=== PATIENT | male | born 1955 | race Caucasian/White ===

== ENCOUNTER 2016-11-04 12:10 | Inpatient (IN) ==
--- NOTE | 2016-11-04 12:29 | Emergency Department Note ---
Disposition Clinical Impression: New onset type 2 diabetes mellitus, Dehydration Acute kidney failure Qualifiers: Acute renal failure type: unspecified Qualified Code(s): N17.9 - Acute kidney failure, unspecified Disposition: Admitted As Inpatient Forms: ED Satisfaction Letter General Adult HPI - General Chief complaint: ED Dizziness Stated complaint: HIGH BS Time Seen by Provider: 11/04/16 12:22 Source: patient, family Limitations: no limitations Nursing Notes Reviewed: Yes Vital Signs Reviewed: Yes - History of Present Illness HPI Narrative: Patient is a 61-year-old male who states for the past several weeks he has had unquenchable thirst he has been tired sleeping more and also urinating many times about the day. He has become increasingly weak he checked his blood sugar today borrowing a glucometer and his blood sugar read elevated Pain Scale: 0 Improves with: nothing Worsens with: nothing Associated symptoms: Reports: malaise - Related Data Allergies Allergy/AdvReac Type Severity Reaction Status Date / Time No Known Allergies Allergy Verified 11/04/16 12:18 All systems ED: reviewed and negative except as stated. Constitutional: Reports: weakness. Denies: fever, chills Neurological: Reports: headache Past Medical History - Past Medical History Source: patient, old records reviewed, nursing notes reviewed Medical history: Reports: COPD, hyperlipidemia, hypertension - Social History Smoking Status: Never smoker Alcohol use: Reports: none Drug use: Reports: none Physical Exam - General Limitations: no limitations General appearance: in no apparent distress - Head Head exam: atraumatic, normocephalic, normal inspection - Eye Eye exam: Present: normal appearance, PERRL, EOMI - Expanded Eye Exam Pupils: Left: reactive - ENT ENT exam: normal exam, normal oropharynx, mucous membranes moist - Expanded ENT Exam External ear exam: Present: normal external inspection Mouth exam: Present: normal external inspection Teeth exam: Present: normal inspection Throat exam: Present: normal inspection - Neck Neck exam: Present: normal inspection, full ROM, trachea midline - Chest Chest inspection: Present: normal inspection, symmetric chest wall rise - Respiratory Respiratory exam: Present: normal lung sounds bilaterally - Cardiovascular Cardiovascular exam: Present: regular rate, normal rhythm, normal heart sounds - Abdominal Exam Abdominal exam: Present: soft, Non-Tender. Absent: tenderness, distention, guarding, rebound, rigidity - Extremities Exam Extremities exam: Present: normal inspection, full ROM. Absent: tenderness, pedal edema - Expanded Upper Extremity Exam Shoulder exam: Present: normal inspection, full ROM Arm exam: Present: normal inspection, full ROM Elbow exam: Present: normal inspection, full ROM Forearm/Wrist exam: Present: normal inspection, full ROM Hand exam: Present: normal inspection, full ROM Vascular exam: Normal: capillary refill, radial pulse - Expanded Lower Extremity Exam Hip/Pelvis exam: Present: normal inspection, full ROM Upper leg exam: Present: normal inspection, full ROM Knee exam: Present: normal inspection, full ROM Lower leg exam: Present: normal inspection, full ROM Ankle exam: Present: normal inspection, full ROM Foot/toe exam: Present: normal inspection, full ROM Neurovascular/Tendon exam: Absent: motor deficit, sensory deficit, tendon deficit - Back Exam Back exam: Present: normal inspection, full ROM. Absent: tenderness - Neurological Exam Neurological exam: Present: alert, oriented X3 - Expanded Neurological Exam Patient oriented to: Present: person, place, time Coma Scale Eye Opening: Spontaneous Coma Scale Motor Response: Obeys Commands Coma Scale Verbal Response: Oriented Coma Scale Total: 15 - Psychiatric Psychiatric exam: Present: normal affect, normal mood - Skin Skin exam: Present: warm, dry, intact, normal color Course Vital Signs Temperature 97.8 F 11/04/16 12:15 Pulse Rate 78 11/04/16 12:15 Respiratory Rate 22 11/04/16 12:15 Blood Pressure 101/66 11/04/16 12:15 O2 Sat by Pulse Oximetry 97 11/04/16 12:15 Temperature 97.8 F 11/04/16 12:15 Pulse Rate 74 11/04/16 13:59 Respiratory Rate 20 11/04/16 13:59 Blood Pressure 109/66 11/04/16 13:59 O2 Sat by Pulse Oximetry 94 11/04/16 13:59 Oxygen Delivery Oxygen Delivery Room Air Medical Decision Making - Lab Data Result diagrams: 11/04/16 12:48 11/04/16 12:48 Lab Results 11/04/16 11/04/16 11/04/16 Range/Units 12:48 12:48 12:48 WBC 12.0 H (4.3-11.1) K/mcL RBC 5.06 (4.19-5.50) M/mcL Hgb 14.3 (12.9-16.9) g/dL Hct 41.1 (37.5-50.1) % MCV 81.2 L (83.0-100.0) fL MCH 28.3 (28.0-33.3) pg MCHC 34.8 (31.6-35.5) g/dL RDW 13.5 (11.5-14.5) % Plt Count 242 (140-400) K/mcL MPV 10.9 (9.4-12.4) fL Immature Gran % 2.6 (0-4) % Seg Neutrophils % 64.5 % Lymphocytes % 18.7 % Monocytes % 8.0 % Eosinophils % 5.6 % Basophils % 0.6 % Neutrophils # 7.8 (1.6-8.9) K/mcL Lymphocytes # 2.2 (0.6-4.6) K/mcL Monocytes # 1.0 (0.0-1.3) K/mcL Eosinophils # 0.7 H (0.0-0.6) K/mcL Basophils # 0.1 (0.0-0.2) K/mcL VBG pH (7.32-7.42) pH Units VBG pCO2 (41-51) mmHg VBG pO2 (25-40) mmHg VBG HCO3 (21-27) mEq/L Sodium 123 L (136-145) mEq/L Potassium 4.2 (3.5-4.5) mEq/L Chloride 88 L (98-109) mEq/L Carbon Dioxide 21 (19-29) mEq/L BUN 47 H (8-26) mg/dL Creatinine 2.54 H (0.72-1.25) mg/dL Est GFR ( Amer) 31 L (> 60) Est GFR (Non-Af Amer) 26 L (> 60) BUN/Creatinine Ratio 19 (6-26) Glucose 709 H* (70-99) mg/dL Est Mean Plasma Glucose > 355 mg/dl Hemoglobin A1c >= 14.1 H ( - 5.6) % Calculated Osmolality 302 H (280-300) Calcium 8.9 (8.6-10.8) mg/dL Phosphorus 3.5 (2.3-4.7) mg/dL Magnesium 2.3 (1.6-2.6) mg/dL Total Bilirubin 1.1 (0.2-1.2) mg/dL AST 17 (5-34) Units/L ALT 26 (0-55) Units/L Alkaline Phosphatase 120 (38-126) Units/L Serum Total Protein 6.7 (6.0-8.3) g/dL Albumin 3.5 (3.5-5.0) g/dL Globulin 3.2 (2.4-3.5) g/dL Albumin/Globulin Ratio 1.1 (1.1-2.2) Beta-Hydroxybutyric Acd > 2.00 H (0.02-0.27) mmol/L 11/04/16 Range/Units 12:48 WBC (4.3-11.1) K/mcL RBC (4.19-5.50) M/mcL Hgb (12.9-16.9) g/dL Hct (37.5-50.1) % MCV (83.0-100.0) fL MCH (28.0-33.3) pg MCHC (31.6-35.5) g/dL RDW (11.5-14.5) % Plt Count (140-400) K/mcL MPV (9.4-12.4) fL Immature Gran % (0-4) % Seg Neutrophils % % Lymphocytes % % Monocytes % % Eosinophils % % Basophils % % Neutrophils # (1.6-8.9) K/mcL Lymphocytes # (0.6-4.6) K/mcL Monocytes # (0.0-1.3) K/mcL Eosinophils # (0.0-0.6) K/mcL Basophils # (0.0-0.2) K/mcL VBG pH 7.42 (7.32-7.42) pH Units VBG pCO2 32 L (41-51) mmHg VBG pO2 87 H (25-40) mmHg VBG HCO3 20.8 L (21-27) mEq/L Sodium (136-145) mEq/L Potassium (3.5-4.5) mEq/L Chloride (98-109) mEq/L Carbon Dioxide (19-29) mEq/L BUN (8-26) mg/dL Creatinine (0.72-1.25) mg/dL Est GFR ( Amer) (> 60) Est GFR (Non-Af Amer) (> 60) BUN/Creatinine Ratio (6-26) Glucose (70-99) mg/dL Est Mean Plasma Glucose mg/dl Hemoglobin A1c ( - 5.6) % Calculated Osmolality (280-300) Calcium (8.6-10.8) mg/dL Phosphorus (2.3-4.7) mg/dL Magnesium (1.6-2.6) mg/dL Total Bilirubin (0.2-1.2) mg/dL AST (5-34) Units/L ALT (0-55) Units/L Alkaline Phosphatase (38-126) Units/L Serum Total Protein (6.0-8.3) g/dL Albumin (3.5-5.0) g/dL Globulin (2.4-3.5) g/dL Albumin/Globulin Ratio (1.1-2.2) Beta-Hydroxybutyric Acd (0.02-0.27) mmol/L Critical Care Time Critical Care Time: Yes Total Critical Care Time: 40 Attestation: Critical care performed: Time is exclusive of separately billable procedures. Time includes: direct patient care, patient reassessment, coordination of patient care, interpretation of data (laboratory data, radiology data, and respiratory data), review of patient's medical records, medical consultation and documentation of patient care. Procedures included in critical care time: Procedures excluded from critical care time:
[2016-11-04] MEDS: 0.9 % Sodium Chloride 1,000 ML IVC SCH ×5 (12:51→18:10)
[2016-11-04 12:55] LABS: Basophils # 0.1 K/mcL (0.0-0.2); Basophils % 0.6 %; Eosinophils # 0.7 K/mcL (0.0-0.6); Eosinophils % 5.6 %; Hematocrit 41.1 % (37.5-50.1); Hemoglobin 14.3 g/dL (12.9-16.9); Immature Granulocytes % 2.6 % (0-4); Lymphocytes # 2.2 K/mcL (0.6-4.6); Lymphocytes % 18.7 %; Mean Corpuscular HGB Conc 34.8 g/dL (31.6-35.5); Mean Corpuscular Hemoglobin 28.3 pg (28.0-33.3); Mean Corpuscular Volume 81.2 fL (83.0-100.0); Mean Platelet Volume 10.9 fL (9.4-12.4); Neutrophils # 7.8 K/mcL (1.6-8.9); Platelet Count 242 K/mcL (140-400); Red Blood Count 5.06 M/mcL (4.19-5.50); Red Cell Distribution Width 13.5 % (11.5-14.5); Segmented Neutrophils % 64.5 %; VBG HCO3 20.8 mEq/L (21-27); VBG PH 7.42 pH Units (7.32-7.42)
[2016-11-04 13:04] LABS: Estimated Average Glucose > 355 mg/dl; Hemoglobin A1C >= 14.1 %
[2016-11-04 13:08] LABS: Alanine Aminotransferase 26 Units/L (0-55); Albumin 3.5 g/dL (3.5-5.0); Albumin/Globulin Ratio 1.1 (1.1-2.2); Alkaline Phosphatase 120 Units/L (38-126); Aspartate Amino Transferase 17 Units/L (5-34); BUN/Creatinine Ratio 19 (6-26); Bilirubin,Total 1.1 mg/dL (0.2-1.2); Blood Urea Nitrogen 47 mg/dL (8-26); Calcium 8.9 mg/dL (8.6-10.8); Carbon Dioxide 21 mEq/L (19-29); Chloride 88 mEq/L (98-109); Globulin 3.2 g/dL (2.4-3.5); Magnesium 2.3 mg/dL (1.6-2.6); Osmolality,Calculated 302 (280-300); Phosphorous 3.5 mg/dL (2.3-4.7); Potassium 4.2 mEq/L (3.5-4.5); Sodium 123 mEq/L (136-145); Total Protein 6.7 g/dL (6.0-8.3); eGFR For African Americans 31 (> 60); eGFR For Non-African Americans 26 (> 60)
[2016-11-04 13:12] LABS: Glucose 709 mg/dL (70-99)
[2016-11-04] MEDS ORDERED: Insulin Human Regular 10 UNIT in 0.9 % Sodium Chloride 10 ML IV ONE (13:12)
[2016-11-04 13:13] LABS: Beta-Hydroxybutyric Acid > 2.00 mmol/L (0.02-0.27)
[2016-11-04] MEDS ORDERED: Insulin LISPRO 300 UNITS/3 ML VIAL SQ STA (13:13)
[2016-11-04] MEDS ORDERED: Ondansetron 4 MG/2 ML VIAL IV ONE (14:43)
[2016-11-04] MEDS ORDERED: *HR* HYDROmorphone (PF) 1 MG/ML SYRINGE IV ONE (14:43)
[2016-11-04] MEDS ORDERED: Ondansetron 4 MG/2 ML VIAL IVP PRN (16:39)
[2016-11-04] MEDS ORDERED: Naloxone 0.4 MG/ML INJ IVP PRN (16:39)
[2016-11-04] MEDS ORDERED: Albuterol 2.5 MG/3 ML NEBULIZER IH PRN (16:41)
[2016-11-04] MEDS ORDERED: *HR* Dextrose 50 % in Water (Syg) 50 ML SYRINGE IVP PRN (16:45)
[2016-11-04] MEDS ORDERED: *HR* OxyCODONE/APAP 5/325 TABLET PO PRN (16:56)
[2016-11-04] MEDS: 0.9 % Sodium Chloride 500 ML IVC ONE ×2 (17:12→17:15)
[2016-11-04] MEDS: Insulin Human Regular 100 UNIT in 0.9 % Sodium Chloride 100 ML IVC SCH (17:24)
--- NOTE | 2016-11-04 17:25 | Event Note ---
Date of Encounter: 11/05/16 Time of Encounter: 16:45 Patient is a 61y/o male with PMH of hypertension, COPD, chronic back pain, morbid obesity who was admitted for management of hyperglycemia. Upon arrival to the ER, patient was noted to have BG of 709 with AIC of 14.1. Patient reported of being ill for the last two months currently finishing treatment for PNA. He denies having any prior history of being a prediabetic but states he does have extensive family history of Diabetes. Upon arrival to the floor, patient was noted to have BG of 490 and BP of 86/63. He is in no acute distress and able to communicate well. Denied any headache, dizziness, lightheadedness, chest pain, SOB at this time. Reports of having history of chronic back pain. States he was recently started on Lasix by his PCP for unknown reason and he has had increase in urination and thirst for the last few weeks. Patient was independently seen and examined with his present at bedside. Case was discussed with the MANAGER ERP. Will admit patient for management of: 1. Hyperglycemia secondary to DM 2. New onset DM 3. CYNTHIA on CKD 4. Hypotension 5. Leukocytosis chronic comorbidities: -HTN -HLD -Chronic Back pain -Morbid Obesity -COPD -BPH Plan: 1. Will start insulin drip until BG<200. Accuchecks q1h. Once BG<200, start Levemir 36units (since patient is insulin naive, will start at 0.2units/kg) and start medium dose insulin sliding scale algorithm. Start ADA diet and accuchecks ACHS once BG<200. nurse informatics educator consultation requested. 2. Continue IV fluids 3. Will give one time bolus of NS 500cc and closely monitor BP 4. Hold all antihypertensive medications at this time 5. Appears to be acute on chronic kidney injury. Will obtain renal US. hold all nephrotoxic agents at this time (Lisinopril/HCTZ, Meloxicam, Lasix) 6. No signs of infectious etiology present at this time. Will obtain UA and CXR to rule out any infectious etiology 7. Continue bronchodilator support for chronic COPD. 8. Will add Percocet 5/325 PO q6h prn chronic pain 9. DVT ppx
--- NOTE | 2016-11-04 18:25 | Internal Med History&Physical ---
Date of Encounter: 11/04/16 Time of Encounter: 17:30 Assessment and Plan (1) Hyperglycemia Current visit: Yes Status: Acute Assess: Patient presents with hyperglycemia over past two days. No previous history of hyperglycemia or DM. Plan: Initiate insulin drip. Hypoglycemia protocol ordered. Blood glucose checks. Diabetic diet ordered following NPO status. (2) Dizziness Current visit: Yes Status: Acute Assess: Patient reports dizziness over the past two days, as well as generalized weakness and fatigue. Plan: IV fluids ordered. Falls precautions ordered. (3) Acute kidney failure Current visit: Yes Status: Acute Assess: Patient presents with polyuria and urinary frequency over the past two days. Patient reports being diagnosed with UTI several weeks ago by PCP and placed on antibiotics. Plan: Retroperitoneal ultrasound ordered. XR chest ordered. KUB ordered. Urinalysis ordered. Continue Tamsulosin. Qualifiers: Acute renal failure type: unspecified Qualified Code(s): N17.9 - Acute kidney failure, unspecified (4) Hypertension Current visit: Yes Status: Chronic Assess: Patient reports history of hypertension. Plan: Monitor blood pressure during admission. Qualifiers: Hypertension type: essential hypertension Qualified Code(s): I10 - Essential (primary) hypertension (5) COPD (chronic obstructive pulmonary disease) Current visit: Yes Status: Chronic Assess: Patient reports history of COPD. Plan: Albuterol ordered. Continue fluticasone. Qualifiers: COPD type: unspecified COPD Qualified Code(s): J44.9 - Chronic obstructive pulmonary disease, unspecified (6) DVT prophylaxis Current visit: Yes Status: Acute Assess: DVT prophylaxis initiated due to admission. Plan: Heparin ordered. Ambulation with assistance as tolerated. 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 Plan: Oxycodone ordered for back pain. Narcan protocol ordered for possible opioid reversal. Qualifiers: Back pain location: back pain in unspecified location Chronicity: chronic Back pain laterality: unspecified Qualified Code(s): M54.9 - Dorsalgia, unspecified; G89.29 - Other chronic pain Internal Medicine - H&P: HPI Chief complaint: Dizziness related to high blood sugar Admitted From: Emergency Dept Plans for Post Hospital Care: Home History of present illness: Mr. Stoddard is a 61 year old male who began feeling dizzy several days ago and his checked his blood glucose level at home which was >400. Patient also reports that he has been feeling extremely fatigued, very thirsty, and experiencing polyuria. He decided to come to the ED today based on these worsening symptoms. Reports headache. Denies nausea or vomiting. Past Med Surg Social Fam HX - Past Medical History Source: other (Patient was fatigued during examination, so his provided additional information. Patient reports he began feeling poorly on September 03, 2016 and was diagnosed with ear & sinus infection by PCP. Reports two weeks later he experienced stomach pain, nausea, vomiting, and diarrhea with suspected kidney stone (undocumented). Several weeks later, patient states he was diagnosed with UTI and pneumonia by PCP and has not felt better since.) Medical history: COPD, hyperlipidemia, hypertension, renal disease (GFR of 26) - Past Surgical History Surgical History: no surgical history - Social History Smoking Status: Never smoker Smokeless Tobacco Status: No Alcohol use: none Drug use: none Occupational status: retired Current living situation: Home, With Family Recent Out of Country Travel Within the Last 8 Weeks: No Exposure or Possible Exposure to Illness During Travel: No - Family History Father Race: Family Member Ethnicity: Non- Living Status: Still Living Hx Family Endocrine Disorder: Yes (DM) Brother Race: Family Member Ethnicity: Non- Living Status: Still Living Hx Family Endocrine Disorder: Yes (DM) - Additional Family History Additional family history: Brother, at the age of 59 from complications from DM. Internal Medicine - H&P: Meds Albuterol Neb [Proventil Neb] 2.5 mg IH Q4-6H PRN 11/04/16 [History] Baclofen [Lioresal] 10 mg PO TID PRN 11/04/16 [History] Fluticasone/Vilanterol [Breo Ellipta 200-25 Mcg INH] 1 each IH DAILY 11/04/16 [ History] Furosemide [Lasix] 40 mg PO BID 11/04/16 [History] Guanfacine HCl [Intuniv] 2 mg PO DAILY 11/04/16 [History] Lisinopril/Hydrochlorothiazide [Zestoretic 20-25 mg Tablet] 1 each PO DAILY 12/16 [History] Meloxicam [Mobic] 15 mg PO DAILY 11/04/16 [History] Potassium Chloride [K-Tab ER] 10 meq PO DAILY 11/04/16 [History] Sucralfate [Carafate] 1 gm PO QIDAC 11/04/16 [History] Tamsulosin [Flomax] 0.8 mg PO DAILY 11/04/16 [History] Tramadol HCl [Ultram] 50 - 100 mg PO QID PRN 11/04/16 [History] Umeclidinium [place] [Incruse Ellipta] 62.5 mcg IH DAILY 11/04/16 [History] Allergies No Known Allergies Allergy (Verified 11/04/16 12:18) All Systems PM: A 10-system review of systems was performed and is negative for pertinent findings except as documented above in the HPI. - Constitutional Constitutional: anorexia, fatigue, malaise, weakness, weight loss Additional comments: Patient reports loss of appetite over the past month. Patient also reports worsening fatigue, malaise, and weakness. Reports an unintended weight loss of 50 pounds over the last 6 weeks. - EENT Eyes: no change in vision, no discharge, no pain, no photophobia Ears: no ear discharge, no ear pain, no tinnitus Nose, mouth and throat: no dysphagia, no nasal discharge, no neck pain, no sore throat - Cardiovascular Cardiovascular ROS IM: no chest pain, no diaphoresis, no dyspnea, no lightheadedness, no palpitations, no syncope Additional comments: Patient reports dizziness over last two days. Denies syncopal episodes. - Respiratory Respiratory: snoring Additional comments: Patient reports use of CPAP at night due to sleep apnea. - Gastrointestinal Gastrointestinal: no abdominal pain, no diarrhea, no hematemesis, no hematochezia, no melena, no nausea, no vomiting - Genitourinary Genitourinary ROS male: urinary frequency Additional comments: Patient reports polyuria. States he is up every hour at night to urinate. 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 States he recently retired. - Integumentary Integumentary IM: other Additional comments: Skin discoloration present bilaterally on lower legs. - Neurological Neurological ROS: dizziness, headache(s), weakness Additional comments: Patient reports dizziness over last two days, headache, and weakness which has become progressively worse over the last few weeks. - Psychiatric Psychiatric: as per HPI Additional comments: Patient states that his PCP prescribed Venlafaxine for depression but he doesn' t take it because he feels he is not depressed, but rather fatigued. - Endocrine Endocrine IM: polyuria Additional comments: Patient reports polyuria during the day and urination every hour at night which keeps him awake. - Hematologic/Lymphatic Hematologic/Lymphatic: no easy bruising - Allergic/Immunologic Allergic/Immunologic: as per HPI - Constitutional Vitals: Temp Pulse Resp BP Pulse Ox 97.5 F L 78 17 113/72 92 11/04/16 16:48 11/04/16 16:48 11/04/16 16:48 11/04/16 18:09 11/04/16 16:48 General appearance: Present: mild distress, A&O X 3, morbidly obese, pleasant, answers questions appropriately Exam: Patient appeared to be mildly uncomfortable which was not improved with position changes. Patient appeared fatigued and allowed his to provide additional information for assessment and history. - Head Head exam: Present: atraumatic, normocephalic - Eye Eye exam: Present: PERRL, conjuntiva pink, sclera anicteric - ENT ENT exam: Present: normal exam - Neck Neck exam general surgery: Present: supple, trachea midline. Absent: lymphadenopathy - Respiratory Respiratory exam: Present: CTAB. Absent: accessory muscle use, rales, rhonchi, wheezes - Cardiovascular Cardiovascular exam: Present: RRR, +S1, +S2. Absent: diastolic murmur, gallop, rubs, systolic murmur - GI/Abdominal GI/Abdominal exam: Present: normal bowel sounds, soft, no peritoneal signs. Absent: distended, tenderness - Rectal Rectal exam: Present: deferred - Additional comments: exam deferred. - Extremities Exam Extremities exam: Present: normal inspection, pedal edema, warm Additional comments: +1 pedal edema bilaterally in lower legs and feet. - Back Exam Back exam: Present: normal inspection - Neurological Exam Neurological exam: Present: oriented X3, no focal deficits Additional comments: Patient appears extremely fatigued. - Psychiatric Psychiatric exam: Present: normal affect, normal mood - Skin Skin exam: Present: dry, warm Additional comments: Some skin discoloration bilaterally on lower legs. Internal Med - H&P Results - Labs CBC & Chem 7: 11/04/16 12:48 11/04/16 12:48
[2016-11-04 20:18] LABS: Calcium 8.6 mg/dL (8.6-10.8); Potassium 3.6 mEq/L (3.5-4.5)
[2016-11-04] MEDS: *HR* Heparin 5,000 UNIT/ML VIAL SQ SCH (21:01)
[2016-11-04] MEDS: Sucralfate 1 GM TABLET PO SCH (21:15)
[2016-11-04 22:58] LABS: Bilirubin,Urine Small (Negative); Blood,Urine Negative (Negative); Clarity,Urine Clear (Clear); Color,Urine Yellow (Yellow); Glucose,Urine (UA) >=1000 mg/dL (Normal); Ketones,Urine Negative (Negative); Leukocyte Esterase,Urine Small (Negative); Nitrite,Urine Negative (Negative); Protein,Urine Trace mg/dL (Neg-Trace); Specific Gravity,Urine 1.028 (1.010-1.025); Urobilinogen,Urine Normal (Normal)
[2016-11-04 23:02] LABS: Bacteria,Urine None Seen per hpf (None-Few); RBC,Urine 0-3 per hpf (0-3); Squamous Epithelial Cell,Urine Many per lpf (None-Few); WBC,Urine 15-30 per hpf (0-3)
[2016-11-04 23:09] LABS: Hyaline Casts,Urine Few per lpf (None-Few)
[2016-11-05 02:10] LABS: Calcium 8.6 mg/dL (8.6-10.8); Potassium 3.5 mEq/L (3.5-4.5)
[2016-11-05] MEDS ORDERED: Insulin DETEMIR 100 UNIT/ML X5UNITS SQ ONE (05:34)
[2016-11-05] MEDS: Insulin Human Regular 100 UNIT in 0.9 % Sodium Chloride 100 ML IVC SCH (05:50)
[2016-11-05 06:20] LABS: BUN/Creatinine Ratio 24 (6-26); Blood Urea Nitrogen 47 mg/dL (8-26); Calcium 8.6 mg/dL (8.6-10.8); Carbon Dioxide 19 mEq/L (19-29); Chloride 103 mEq/L (98-109); Chol/HDL Ratio 5.9 (0-4.9); Cholesterol 183 mg/dL (< 200); Glucose 113 mg/dL (70-99); HDL Cholesterol 31 mg/dL (40-59); Magnesium 2.4 mg/dL (1.6-2.6); Osmolality,Calculated 293 (280-300); Phosphorous 3.6 mg/dL (2.3-4.7); Potassium 4.3 mEq/L (3.5-4.5); Sodium 135 mEq/L (136-145); Triglycerides 507 mg/dL (< 150); eGFR For African Americans 42 (> 60); eGFR For Non-African Americans 35 (> 60)
[2016-11-05] MEDS: *HR* Heparin 5,000 UNIT/ML VIAL SQ SCH ×2 (06:37→17:45)
[2016-11-05] MEDS: Insulin LISPRO 300 UNITS/3 ML VIAL SQ SCH ×3 (07:53→17:44)
[2016-11-05] MEDS: Sucralfate 1 GM TABLET PO SCH ×4 (07:53→21:31)
[2016-11-05] MEDS: (Umeclidinium Bromide [Incruse Ellipta] 62.5 MCG) IH SCH (07:54)
[2016-11-05] MEDS: (Fluticasone/Vilanterol [Breo Ellipta 200-25 Mcg Inh] IH SCH (07:54)
[2016-11-05 08:39] LABS: Basophils # 0.1 K/mcL (0.0-0.2); Basophils % 0.6 %; Eosinophils # 0.8 K/mcL (0.0-0.6); Eosinophils % 7.8 %; Hematocrit 38.1 % (37.5-50.1); Hemoglobin 13.1 g/dL (12.9-16.9); Immature Granulocytes % 2.1 % (0-4); Lymphocytes # 2.7 K/mcL (0.6-4.6); Lymphocytes % 24.8 %; Mean Corpuscular HGB Conc 34.4 g/dL (31.6-35.5); Mean Corpuscular Volume 84.3 fL (83.0-100.0); Mean Platelet Volume 10.8 fL (9.4-12.4); Monocytes # 0.7 K/mcL (0.0-1.3); Monocytes % 6.8 %; Neutrophils # 6.2 K/mcL (1.6-8.9); Platelet Count 215 K/mcL (140-400); Red Blood Count 4.52 M/mcL (4.19-5.50); Red Cell Distribution Width 13.6 % (11.5-14.5); Segmented Neutrophils % 57.9 %
[2016-11-05] MEDS: 0.9 % Sodium Chloride 1,000 ML IVC SCH ×3 (12:51→23:23)
--- NOTE | 2016-11-05 13:43 | Internal Med Progress Note ---
Date of Encounter: 11/05/16 Time of Encounter: 13:41 - Assessment and plan (1) Dysphagia Current Visit: Yes Status: Acute Assessment and plan: Reports of having history of dysphagia to solid food for over a month with unintentional weight loss will consult GI for possible EGD follow up speech therapy eval will closely monitor Qualifiers: Dysphagia type: unspecified Qualified Code(s): R13.10 - Dysphagia, unspecified (2) [id number] kidney injury Current Visit: Yes Status: Acute Assessment and plan: Renal function improving Renal US negative for any pathology will continue to hold nephrotoxic agents continue IV fluids (3) New onset type 2 diabetes mellitus Current Visit: Yes Status: Acute Assessment and plan: -BG better controlled Received Levemir 30units this morning, will adjust therapy as per 24 hour requirements will continue sliding scale insulin algorithm as needed continue to monitor FS and BG (4) Hypertension Current Visit: Yes Status: Chronic Assessment and plan: BP within acceptable range despite being off antihypertensive medications will continue to closely monitor Qualifiers: Hypertension type: essential hypertension Qualified Code(s): I10 - Essential (primary) hypertension (5) COPD (chronic obstructive pulmonary disease) Current Visit: Yes Status: Chronic Assessment and plan: not in acute exacerbation reports of using cpap at bedtime, will continue bronchodilators as needed Qualifiers: COPD type: unspecified COPD Qualified Code(s): J44.9 - Chronic obstructive pulmonary disease, unspecified (6) DVT prophylaxis Current Visit: Yes Status: Acute Assessment and plan: Heparin SQ (7) Back pain Current Visit: Yes Status: Chronic Assessment and plan: continue percocet prn Qualifiers: Back pain location: back pain in unspecified location Chronicity: chronic Back pain laterality: unspecified Qualified Code(s): M54.9 - Dorsalgia, unspecified; G89.29 - Other chronic pain - Subjective Interval history: Patient seen and examined with present at bedside. Reports of feeling better compared to the previous day. Reports of having dysphagia to solid foods for the last month with unintentional weight loss of 50lbs. Denies any having any prior EGD. At this time he is tolerating soft diet without any discomfort. - Constitutional Vitals: Temp Pulse Resp BP Pulse Ox 98.1 F 89 16 120/65 94 11/05/16 11:34 11/05/16 11:34 11/05/16 11:34 11/05/16 11:34 11/05/16 11:34 General appearance: Present: A&O X 3, morbidly obese, pleasant, no acute distress, answers questions appropriately - Head Head exam: Present: atraumatic, normocephalic - Eye Eye exam: Present: normal appearance, conjuntiva pink, sclera anicteric - Respiratory Respiratory exam: Present: decreased breath sounds (due to body habitus). Absent: respiratory distress, wheezes - Cardiovascular Cardiovascular exam: Present: RRR, +S1, +S2. Absent: diastolic murmur, gallop, rubs, systolic murmur - GI/Abdominal GI/Abdominal exam: Present: normal bowel sounds, soft, no peritoneal signs. Absent: distended, tenderness - Extremities Exam Extremities exam: Present: warm, radial pulses palpable and symetrical. Absent : calf tenderness, cyanotic, pedal edema - Neurological Exam Neurological exam: Present: alert, oriented X3 - Psychiatric Psychiatric exam: Present: normal affect, normal mood Internal Medicine: Result - Labs CBC & Chem 7: 11/05/16 07:36 11/05/16 04:57 Labs: Short CBC 11/05/16 Range/Units 07:36 WBC 10.7 (4.3-11.1) K/mcL Hgb 13.1 (12.9-16.9) g/dL Hct 38.1 (37.5-50.1) % Plt Count 215 (140-400) K/mcL Neutrophils # 6.2 (1.6-8.9) K/mcL BMP 11/04/16 11/05/16 11/05/16 19:39 00:30 04:57 Sodium 133 L D 133 L 135 L Potassium 3.6 3.5 4.3 Chloride 99 97 L 103 Carbon Dioxide 20 22 19 BUN 46 H 48 H 47 H Creatinine 2.23 H 2.20 H 1.96 H Glucose 198 H 213 H 113 H Calcium 8.6 8.6 8.6 Urine 11/04/16 Range/Units 22:45 Urine Color Yellow (Yellow) Urine Clarity Clear (Clear) Urine pH 5.0 (5.0-8.0) pH Units Ur Specific [place] 1.028 H (1.010-1.025) Urine Protein Trace (Neg-Trace) mg/dL Urine Glucose (UA) >=1000 H (Normal) mg/dL - Impressions Impressions Chest X-Ray 11/04/16 17:10 IMPRESSION: Slight ground-glass attenuation at the left costophrenic sulcus may represent atelectasis or perhaps trace pleural fluid. Early pneumonitis considered less likely. D/ / Yosi Hilton MD / Yosi Hilton MD Interpreting Provider: Yosi Hilton MD X-Ray 11/04/16 17:18 IMPRESSION: No evidence of nephrolithiasis. No other significant findings. D/ / Yosi Hilton MD / Yosi Hilton MD Interpreting Provider: Yosi Hilton MD Retroperitoneum Ultrasound 11/04/16 22:00 IMPRESSION: No evidence of hydronephrosis. No abnormality demonstrated. D/ / Vito Pinedo MD / Vito Pinedo MD Interpreting Provider: Vito Pinedo MD Consult Discharge Plan - Plan Referrals: Miac Hudson CNP [Primary Care Provider] -
[2016-11-05] MEDS ORDERED: Insulin LISPRO 300 UNITS/3 ML VIAL SQ SCH (21:00)
[2016-11-06 03:21] LABS: Basophils # 0.1 K/mcL (0.0-0.2); Basophils % 1.1 %; Eosinophils # 0.6 K/mcL (0.0-0.6); Eosinophils % 7.3 %; Hematocrit 38.8 % (37.5-50.1); Hemoglobin 13.1 g/dL (12.9-16.9); Immature Granulocytes % 3.3 % (0-4); Lymphocytes # 2.3 K/mcL (0.6-4.6); Lymphocytes % 26.6 %; Mean Corpuscular HGB Conc 33.8 g/dL (31.6-35.5); Mean Corpuscular Hemoglobin 28.4 pg (28.0-33.3); Mean Platelet Volume 10.7 fL (9.4-12.4); Monocytes # 0.7 K/mcL (0.0-1.3); Monocytes % 8.3 %; Neutrophils # 4.5 K/mcL (1.6-8.9); Platelet Count 200 K/mcL (140-400); Red Blood Count 4.62 M/mcL (4.19-5.50); Red Cell Distribution Width 13.6 % (11.5-14.5); Segmented Neutrophils % 53.4 %
[2016-11-06 03:34] LABS: Calcium 8.5 mg/dL (8.6-10.8); Magnesium 2.3 mg/dL (1.6-2.6); Phosphorous 2.7 mg/dL (2.3-4.7)
[2016-11-06 03:37] LABS: Potassium 4.4 mEq/L (3.5-4.5)
[2016-11-06] MEDS: *HR* Heparin 5,000 UNIT/ML VIAL SQ SCH ×2 (06:28→18:25)
[2016-11-06] MEDS ORDERED: Insulin DETEMIR 100 UNIT/ML X5UNITS SQ SCH ×2 (07:00→21:00)
[2016-11-06] MEDS: (Fluticasone/Vilanterol [Breo Ellipta 200-25 Mcg Inh] IH SCH (07:48)
[2016-11-06] MEDS: (Umeclidinium Bromide [Incruse Ellipta] 62.5 MCG) IH SCH (07:48)
[2016-11-06] MEDS: Sucralfate 1 GM TABLET PO SCH ×4 (07:52→19:47)
[2016-11-06] MEDS: Insulin LISPRO 300 UNITS/3 ML VIAL SQ SCH ×6 (07:52→20:56)
[2016-11-06] MEDS: Insulin DETEMIR 100 UNIT/ML X5UNITS SQ SCH (10:37)
[2016-11-06] MEDS ORDERED: Insulin DETEMIR 100 UNIT/ML X5UNITS SQ ONE (10:38)
[2016-11-06] MEDS ORDERED: Dextrose Gel 15 GM PO PRN ×2 (10:41)
[2016-11-06] MEDS ORDERED: *HR* Dextrose 50 % in Water (Syg) 50 ML SYRINGE IVP PRN (10:41)
[2016-11-06] MEDS ORDERED: D5% in Water 1,000 ML IVC PRN (10:41)
[2016-11-06] MEDS: Sennosides/Docusate Sodium TABLET PO SCH ×2 (11:17→19:47)
--- NOTE | 2016-11-06 12:27 | Gastroenterology Consult Note ---
<Grayson Kong - Last Filed: 11/06/16 12:25> Date of Encounter: 11/06/16 Time of Encounter: 10:30 - Assessment and plan (1) Dysphagia Current Visit: Yes Status: Acute Assessment and plan: Unable to complete EGD today as pt was not NPO. Plan to complete EGD as outpatient with possible dilation in GI/Pulm. Qualifiers: Dysphagia type: unspecified Qualified Code(s): R13.10 - Dysphagia, unspecified (2) COPD (chronic obstructive pulmonary disease) Current Visit: Yes Status: Chronic Qualifiers: COPD type: unspecified COPD Qualified Code(s): J44.9 - Chronic obstructive pulmonary disease, unspecified (3) Unintentional weight loss Current Visit: Yes Status: Acute Assessment and plan: Pt reports an unintentional weight loss of 50 lbs over the past month. Consider EGD/colonoscopy as outpatient. - Time Spent With Patient Total time spent is greater than 50% in coordination of care (as documented) at patient's floor/unit and/or counseling patient: GI History of Present Illness - Data of Consult Patient: new to practice Consult date: 11/06/16 Requesting Physician: Kerri Stern MD - Consult Narrative Reason for consult: dysphagia History of present illness: Mr. Stoddard is a 61 year old male with PMHx of COPD, HLD, HTN, who presented with feeling dizzy for several days, On presentation to the ED BG was 709 wiht A1C of 14.1. He reports dysphagia with solid foods for the past month, and reports an unintentional weight loss of 50 lbs. No previous EGD. He states he had no difficulty swallowing his breakfast this morning. He denies any history of colonoscopy. Procedures: None NSAIDs: Mobic Anticoagulation: None Past Med Surg Social Fam HX - Past Medical History Medical history: COPD, hyperlipidemia, hypertension, renal disease (GFR of 26) - Past Surgical History Surgical History: no surgical history - Social History Smoking Status: Never smoker Smokeless Tobacco Status: No Alcohol use: none Drug use: none - Family History Father Race: Family Member Ethnicity: Non- Living Status: Still Living Hx Family Endocrine Disorder: Yes (DM) Brother Race: Family Member Ethnicity: Non- Living Status: Still Living Hx Family Endocrine Disorder: Yes (DM) - Gastrointestinal Gastrointestinal: Present: as per HPI - Constitutional Constitutional: as per HPI - EENT Eyes: as per HPI Ears: Present: as per HPI Nose, mouth and throat: Present: as per HPI - Cardiovascular Cardiovascular ROS: Present: as per HPI - Respiratory Respiratory IM: Present: as per HPI - Genitourinary Genitourinary: Absent: change in color, Urinary frequency - Neurological ROS Neurological GI: Present: as per HPI - Hematologic/Lymphatic Hematologic/Lymphatic pediatric: Present: as per HPI - Musculoskeletal Musculoskeletal ROS GI: Present: as per HPI - Integumentary Integumentary GI: Present: as per HPI - Psychiatric ROS Psychiatric GI: Present: as per HPI - Endocrine Endocrine IM: Present: as per HPI - Constitutional Vitals: Temp Pulse Resp BP Pulse Ox 98 F 86 18 154/69 96 11/06/16 10:37 11/06/16 10:37 11/06/16 10:37 11/06/16 10:37 11/06/16 10:37 General appearance: Present: cooperative, A&O X 3, no acute distress, answers questions appropriately - Head Head exam: Present: atraumatic, normocephalic - Eye Eye exam: Present: normal appearance, sclera anicteric - ENT ENT exam: Present: mucous membranes moist - Neck Neck exam general surgery: Present: normal inspection, trachea midline - Respiratory Respiratory exam: Present: decreased breath sounds, CTAB. Absent: rales, rhonchi - Cardiovascular Cardiovascular exam: Present: RRR, +S1, +S2 - GI/Abdominal GI/Abdominal exam: Present: soft, no peritoneal signs. Absent: distended, firm , guarding, tenderness Additional comments: obese - Rectal Rectal exam: Present: deferred - Extremities Exam Extremities exam: Present: warm - Neurological Exam Neurological exam: Present: no focal deficits - Psychiatric Psychiatric exam: Present: normal affect, normal mood - Skin Skin exam: Present: dry, intact, normal color, warm Results - Labs CBC & Chem 7: 11/06/16 02:41 11/06/16 02:41 Labs: Last Result Calcium 8.5 mg/dL (8.6-10.8) L 11/06/16 02:41 Triglycerides 507 mg/dL (< 150) H 11/05/16 04:57 Entire Visit Hgb 13.1 g/dL (12.9-16.9) 11/06/16 02:41 Hct 38.8 % (37.5-50.1) 11/06/16 02:41 Total Bilirubin 1.1 mg/dL (0.2-1.2) 11/04/16 12:48 AST 17 Units/L (5-34) 11/04/16 12:48 ALT 26 Units/L (0-55) 11/04/16 12:48 Consult Discharge Plan - Plan Referrals: Mica Hudson ELECTRIC RANGE PREPARER [Primary Care Provider] - 11/09/16 10:00 am <Won Fowler - Last Filed: 11/06/16 14:44> Date of Encounter: 11/06/16 - Time Spent With Patient Total time spent is greater than 50% in coordination of care (as documented) at patient's floor/unit and/or counseling patient: GI History of Present Illness - Data of Consult Requesting Physician: Kerri Stern MD - Consult Narrative History of present illness: Mr. Stoddard is a 61 year old male - Constitutional Vitals: Temp Pulse Resp BP Pulse Ox 97.6 F 97 16 179/73 96 11/06/16 14:42 11/06/16 14:42 11/06/16 14:42 11/06/16 14:42 11/06/16 14:42 Results - Labs CBC & Chem 7: 11/06/16 02:41 11/06/16 02:41 Labs: Last Result Calcium 8.5 mg/dL (8.6-10.8) L 11/06/16 02:41 Triglycerides 507 mg/dL (< 150) H 11/05/16 04:57 Entire Visit Hgb 13.1 g/dL (12.9-16.9) 11/06/16 02:41 Hct 38.8 % (37.5-50.1) 11/06/16 02:41 Total Bilirubin 1.1 mg/dL (0.2-1.2) 11/04/16 12:48 AST 17 Units/L (5-34) 11/04/16 12:48 ALT 26 Units/L (0-55) 11/04/16 12:48 - Attending Attestation I examined this patient and my medical decision-making was reviewed with the CHILD CARE ASSOCIATE TEACHER/PA/Advanced Practice Nurse/Resident Physician. I agree with the documented findings, disposition and treatment plan as described except to the extent set forth below.
[2016-11-06] MEDS: 0.9 % Sodium Chloride 1,000 ML IVC SCH ×2 (12:31→20:56)
--- NOTE | 2016-11-06 13:11 | Internal Med Progress Note ---
Date of Encounter: 11/06/16 Time of Encounter: 12:30 - Assessment and plan (1) New onset type 2 diabetes mellitus Current Visit: Yes Status: Acute Assessment and plan: -Hyperglycemia persists -Increased to Levemir 48units qD and added Lispro 6units TIDAC based on the 24hour insulin requirements -will continue to closely monitor BG and FS -continue SS insulin algorithm as needed (2) Dysphagia Current Visit: Yes Status: Acute Assessment and plan: Reports of having history of dysphagia to solid food for over a month with unintentional weight loss GI and speech consultation noted EGD as outpatient Qualifiers: Dysphagia type: unspecified Qualified Code(s): R13.10 - Dysphagia, unspecified (3) [id number] kidney injury Current Visit: Yes Status: Acute Assessment and plan: Renal function improving Renal US negative for any pathology will continue to hold nephrotoxic agents continue IV fluids (4) Hypertension Current Visit: Yes Status: Chronic Assessment and plan: BP within acceptable range despite being off antihypertensive medications will continue to closely monitor Qualifiers: Hypertension type: essential hypertension Qualified Code(s): I10 - Essential (primary) hypertension (5) COPD (chronic obstructive pulmonary disease) Current Visit: Yes Status: Chronic Assessment and plan: not in acute exacerbation reports of using cpap at bedtime, will continue bronchodilators as needed Qualifiers: COPD type: unspecified COPD Qualified Code(s): J44.9 - Chronic obstructive pulmonary disease, unspecified (6) DVT prophylaxis Current Visit: Yes Status: Acute Assessment and plan: Heparin SQ (7) Back pain Current Visit: Yes Status: Chronic Assessment and plan: continue percocet prn Qualifiers: Back pain location: back pain in unspecified location Chronicity: chronic Back pain laterality: unspecified Qualified Code(s): M54.9 - Dorsalgia, unspecified; G89.29 - Other chronic pain - Subjective Interval history: Patient seen and examined at bedside. REsting in bed and reports of feeling better. Noted to remain hyperglycemic. Will adjust insulin therapy. Discharge pending better control of BG. - Constitutional Vitals: Temp Pulse Resp BP Pulse Ox 98 F 86 18 154/69 96 11/06/16 10:37 11/06/16 10:37 11/06/16 10:37 11/06/16 10:37 11/06/16 10:37 General appearance: Present: A&O X 3, morbidly obese, pleasant, no acute distress, answers questions appropriately - Head Head exam: Present: atraumatic, normocephalic - Eye Eye exam: Present: PERRL, conjuntiva pink, sclera anicteric - Respiratory Respiratory exam: Present: CTAB. Absent: accessory muscle use, rales, rhonchi, wheezes - Cardiovascular Cardiovascular exam: Present: RRR, +S1, +S2. Absent: diastolic murmur, gallop, rubs, systolic murmur - GI/Abdominal GI/Abdominal exam: Present: normal bowel sounds, soft, no peritoneal signs. Absent: distended, tenderness - Extremities Exam Extremities exam: Present: warm, radial pulses palpable and symetrical. Absent : calf tenderness, cyanotic, pedal edema - Neurological Exam Neurological exam: Present: alert, oriented X3 - Psychiatric Psychiatric exam: Present: normal affect, normal mood Internal Medicine: Result - Labs CBC & Chem 7: 11/06/16 02:41 11/06/16 02:41 Labs: Short CBC 11/06/16 Range/Units 02:41 WBC 8.5 (4.3-11.1) K/mcL Hgb 13.1 (12.9-16.9) g/dL Hct 38.8 (37.5-50.1) % Plt Count 200 (140-400) K/mcL Neutrophils # 4.5 (1.6-8.9) K/mcL BMP 11/06/16 02:41 Sodium 135 L Potassium 4.4 Chloride 102 Carbon Dioxide 19 BUN 35 H D Creatinine 1.58 H Glucose 302 H Calcium 8.5 L Consult Discharge Plan - Plan Referrals: Mica Hudson CNP [Primary Care Provider] - 11/09/16 10:00 am
[2016-11-06] MEDS: Budesonide/Formoterol 160/4.5 MDI IH SCH ×2 (14:36→20:13)
[2016-11-06] MEDS: Nystatin POWDER 30 GM BOTTLE TP SCH (19:48)
[2016-11-07 04:36] LABS: BUN/Creatinine Ratio 17 (6-26); Calcium 8.4 mg/dL (8.6-10.8); Carbon Dioxide 17 mEq/L (19-29); Chloride 108 mEq/L (98-109); Glucose 178 mg/dL (70-99); Magnesium 1.7 mg/dL (1.6-2.6); Osmolality,Calculated 290 (280-300); Phosphorous 2.5 mg/dL (2.3-4.7); Potassium 3.6 mEq/L (3.5-4.5); Sodium 137 mEq/L (136-145); eGFR For African Americans > 60 (> 60); eGFR For Non-African Americans > 60 (> 60)
[2016-11-07 04:37] LABS: Blood Urea Nitrogen 18 mg/dL (8-26)
[2016-11-07 06:12] LABS: Basophils # 0.1 K/mcL (0.0-0.2); Basophils % 0.8 %; Eosinophils # 0.6 K/mcL (0.0-0.6); Hematocrit 36.4 % (37.5-50.1); Hemoglobin 12.4 g/dL (12.9-16.9); Immature Granulocytes % 1.8 % (0-4); Lymphocytes # 2.3 K/mcL (0.6-4.6); Lymphocytes % 30.6 %; Mean Corpuscular HGB Conc 34.1 g/dL (31.6-35.5); Mean Corpuscular Volume 85.2 fL (83.0-100.0); Mean Platelet Volume 11.1 fL (9.4-12.4); Monocytes # 0.8 K/mcL (0.0-1.3); Monocytes % 10.6 %; Neutrophils # 3.7 K/mcL (1.6-8.9); Platelet Count 177 K/mcL (140-400); Red Blood Count 4.27 M/mcL (4.19-5.50); Red Cell Distribution Width 13.8 % (11.5-14.5); Segmented Neutrophils % 48.2 %
[2016-11-07] MEDS: *HR* Heparin 5,000 UNIT/ML VIAL SQ SCH ×2 (06:36→16:53)
[2016-11-07] MEDS: 0.9 % Sodium Chloride 1,000 ML IVC SCH (06:39)
[2016-11-07] MEDS: Budesonide/Formoterol 160/4.5 MDI IH SCH ×2 (07:36→20:21)
[2016-11-07] MEDS: Sucralfate 1 GM TABLET PO SCH ×4 (07:51→22:12)
[2016-11-07] MEDS: Sennosides/Docusate Sodium TABLET PO SCH ×2 (07:51→22:12)
[2016-11-07] MEDS: Nystatin POWDER 30 GM BOTTLE TP SCH ×2 (07:52→22:13)
[2016-11-07] MEDS: Insulin LISPRO 300 UNITS/3 ML VIAL SQ SCH ×7 (07:52→22:13)
[2016-11-07] MEDS: (Fluticasone/Vilanterol [Breo Ellipta 200-25 Mcg Inh] IH SCH (07:53)
[2016-11-07] MEDS: (Umeclidinium Bromide [Incruse Ellipta] 62.5 MCG) IH SCH (07:53)
[2016-11-07] MEDS ORDERED: 0.9 % Sodium Chloride 1,000 ML IVC SCH (08:19)
[2016-11-07] MEDS: Insulin DETEMIR 100 UNIT/ML X5UNITS SQ SCH (08:22)
[2016-11-07] MEDS: Furosemide 40 MG TABLET PO SCH ×2 (10:51→16:53)
--- NOTE | 2016-11-07 13:52 | Internal Med Progress Note ---
Date of Encounter: 11/07/16 Time of Encounter: 13:48 - Assessment and plan (1) New onset type 2 diabetes mellitus Current Visit: Yes Status: Acute Assessment and plan: -Hyperglycemia persists -Given the consistent hyperglycemia, Levemir 20units qHS was added to his regimen yesterday, along with increasing Lispro to 10units TIDAC. Despite this increase patient has required over 50units of additional insulin coverage. -Will continue Levemir 48units qd and increased to Levemir 40units qHS -increased to high dose insulin algorithm -increased Lispro to 15units TIDAC -continue SS insulin algorithm as needed -monitor FS and BG closely (2) Dysphagia Current Visit: Yes Status: Acute Assessment and plan: Reports of having history of dysphagia to solid food for over a month with unintentional weight loss GI and speech consultation noted EGD as outpatient Qualifiers: Dysphagia type: unspecified Qualified Code(s): R13.10 - Dysphagia, unspecified (3) Whqsb-ln-[id number] kidney injury Current Visit: Yes Status: Acute Assessment and plan: Resolved will restart home antihypertensives and closely monitor renal function d/c IV fluids (4) Hypertension Current Visit: Yes Status: Chronic Assessment and plan: Noted to be hypertensive this morning but asymptomatic restarted home medications (Lisinopril/HCTZ, Lasix) Added Hydralazine 10mg IV q6h PRN SBP>160 will continue to closely monitor BP Qualifiers: Hypertension type: essential hypertension Qualified Code(s): I10 - Essential (primary) hypertension (5) COPD (chronic obstructive pulmonary disease) Current Visit: Yes Status: Chronic Assessment and plan: not in acute exacerbation reports of using cpap at bedtime, will continue bronchodilators as needed Qualifiers: COPD type: unspecified COPD Qualified Code(s): J44.9 - Chronic obstructive pulmonary disease, unspecified (6) DVT prophylaxis Current Visit: Yes Status: Acute Assessment and plan: Heparin SQ (7) Back pain Current Visit: Yes Status: Chronic Assessment and plan: continue percocet prn Qualifiers: Back pain location: back pain in unspecified location Chronicity: chronic Back pain laterality: unspecified Qualified Code(s): M54.9 - Dorsalgia, unspecified; G89.29 - Other chronic pain - Subjective Interval history: Patient seen and examined at bedside. Resting in bed and reports of feeling better. Noted to remain hyperglycemic and hypertensive this morning. Denies any discomfort at this time. Will adjust insulin therapy. Discharge pending better control of BG. - Constitutional Vitals: Temp Pulse Resp BP Pulse Ox 98.6 F 81 16 170/69 97 11/07/16 11:06 11/07/16 11:06 11/07/16 11:06 11/07/16 11:06 11/07/16 11:06 General appearance: Present: A&O X 3, morbidly obese, pleasant, no acute distress, answers questions appropriately - Head Head exam: Present: atraumatic, normocephalic - Eye Eye exam: Present: normal appearance, conjuntiva pink, sclera anicteric - Respiratory Respiratory exam: Present: CTAB. Absent: accessory muscle use, rales, rhonchi, wheezes - Cardiovascular Cardiovascular exam: Present: RRR, +S1, +S2. Absent: diastolic murmur, gallop, rubs, systolic murmur - GI/Abdominal GI/Abdominal exam: Present: normal bowel sounds, soft, no peritoneal signs. Absent: distended, tenderness Additional comments: ventral hernia - Extremities Exam Extremities exam: Present: warm, radial pulses palpable and symetrical. Absent : calf tenderness, cyanotic, pedal edema - Neurological Exam Neurological exam: Present: alert, oriented X3 - Psychiatric Psychiatric exam: Present: normal affect, normal mood Internal Medicine: Result - Labs CBC & Chem 7: 11/07/16 05:16 11/07/16 03:13 Labs: Short CBC 11/07/16 Range/Units 05:16 WBC 7.6 (4.3-11.1) K/mcL Hgb 12.4 L (12.9-16.9) g/dL Hct 36.4 L (37.5-50.1) % Plt Count 177 (140-400) K/mcL Neutrophils # 3.7 (1.6-8.9) K/mcL BMP 11/07/16 03:13 Sodium 137 Potassium 3.6 Chloride 108 Carbon Dioxide 17 L BUN 18 D Creatinine 1.08 Glucose 178 H Calcium 8.4 L Consult Discharge Plan - Plan Referrals: Mica Hudson CNP [Primary Care Provider] - 11/09/16 10:00 am
[2016-11-07] MEDS ORDERED: Insulin DETEMIR 100 UNIT/ML X5UNITS SQ SCH (21:00)
--- NOTE | 2016-11-07 21:50 | Event Note ---
Date of Encounter: 11/07/16 Time of Encounter: 21:45 on-call Hospitalist note: RN paged me to review the patient. Patient apparently noted rash on his arms bilaterally and the left forearm, no rash on trunk. Rash is itchy and burning. On my evaluation he had confluent, erythematous rash on the arms, left fore arm and upper back. I suspect allergic reaction. On review of his medications, hydralazine seems me on the new medication, which he received this afternoon. Possible allergic reaction to hydralazine. D/C hydralazine and list it as allegy. Start Benadryl PRN. Monitor.
[2016-11-08 06:14] LABS: Basophils # 0.1 K/mcL (0.0-0.2); Basophils % 0.6 %; Eosinophils # 0.5 K/mcL (0.0-0.6); Eosinophils % 6.9 %; Hematocrit 36.6 % (37.5-50.1); Hemoglobin 12.3 g/dL (12.9-16.9); Lymphocytes # 2.5 K/mcL (0.6-4.6); Mean Corpuscular HGB Conc 33.6 g/dL (31.6-35.5); Mean Corpuscular Hemoglobin 28.4 pg (28.0-33.3); Mean Corpuscular Volume 84.5 fL (83.0-100.0); Mean Platelet Volume 10.3 fL (9.4-12.4); Monocytes # 0.8 K/mcL (0.0-1.3); Monocytes % 10.5 %; Neutrophils # 3.8 K/mcL (1.6-8.9); Platelet Count 179 K/mcL (140-400); Red Blood Count 4.33 M/mcL (4.19-5.50); Red Cell Distribution Width 13.8 % (11.5-14.5)
[2016-11-08] MEDS: *HR* Heparin 5,000 UNIT/ML VIAL SQ SCH (06:18)
[2016-11-08 06:30] LABS: BUN/Creatinine Ratio 11 (6-26); Blood Urea Nitrogen 12 mg/dL (8-26); Calcium 8.7 mg/dL (8.6-10.8); Carbon Dioxide 21 mEq/L (19-29); Chloride 107 mEq/L (98-109); Glucose 130 mg/dL (70-99); Magnesium 1.5 mg/dL (1.6-2.6); Osmolality,Calculated 288 (280-300); Phosphorous 3.4 mg/dL (2.3-4.7); Potassium 3.5 mEq/L (3.5-4.5); Sodium 138 mEq/L (136-145); eGFR For African Americans > 60 (> 60); eGFR For Non-African Americans > 60 (> 60)
[2016-11-08] MEDS: Furosemide 40 MG TABLET PO SCH (07:33)
[2016-11-08] MEDS: Sucralfate 1 GM TABLET PO SCH ×2 (07:33→11:49)
[2016-11-08] MEDS: (Fluticasone/Vilanterol [Breo Ellipta 200-25 Mcg Inh] IH SCH (07:34)
[2016-11-08] MEDS: Insulin LISPRO 300 UNITS/3 ML VIAL SQ SCH ×4 (07:34→11:49)
[2016-11-08] MEDS: Sennosides/Docusate Sodium TABLET PO SCH (07:34)
[2016-11-08] MEDS: (Umeclidinium Bromide [Incruse Ellipta] 62.5 MCG) IH SCH (07:34)
[2016-11-08] MEDS: Nystatin POWDER 30 GM BOTTLE TP SCH (07:35)
[2016-11-08] MEDS: Budesonide/Formoterol 160/4.5 MDI IH SCH (07:42)
[2016-11-08] MEDS ORDERED: Magnesium Sulfate 1 GM in D5% in Water 100 ML IVPB ONE (08:04)
[2016-11-08] MEDS: Insulin DETEMIR 100 UNIT/ML X5UNITS SQ SCH (09:09)
--- NOTE | 2016-11-08 13:42 | Discharge Summary ---
Date of Encounter: 11/08/16 Time of Encounter: 13:39 - Discharge Diagnosis (1) New onset type 2 diabetes mellitus Priority: Primary Status: Acute (2) Dysphagia Priority: Secondary Status: Acute Qualifiers: Dysphagia type: unspecified Qualified Code(s): R13.10 - Dysphagia, unspecified (3) Lyyfq-fl-dopdfjd kidney injury Priority: Secondary Status: Resolved (4) Hypertension Priority: Secondary Status: Chronic Qualifiers: Hypertension type: essential hypertension Qualified Code(s): I10 - Essential (primary) hypertension (5) COPD (chronic obstructive pulmonary disease) Priority: Secondary Status: Chronic Qualifiers: COPD type: unspecified COPD Qualified Code(s): J44.9 - Chronic obstructive pulmonary disease, unspecified (6) DVT prophylaxis Priority: Secondary Status: Acute (7) Back pain Priority: Secondary Status: Chronic Qualifiers: Back pain location: back pain in unspecified location Chronicity: chronic Back pain laterality: unspecified Qualified Code(s): M54.9 - Dorsalgia, unspecified; G89.29 - Other chronic pain - Discharge Medications Home Medications: Albuterol Neb [Proventil Neb] 2.5 mg IH Q4-6H PRN 11/04/16 [History] Baclofen [Lioresal] 10 mg PO TID PRN 11/04/16 [History] Fluticasone/Vilanterol [Breo Ellipta 200-25 Mcg INH] 1 each IH DAILY 11/04/16 [ History] Furosemide [Lasix] 40 mg PO BID 11/04/16 [History] Guanfacine HCl [Intuniv] 2 mg PO DAILY 11/04/16 [History] Lisinopril/Hydrochlorothiazide [Zestoretic 20-25 mg Tablet] 1 each PO DAILY 12/16 [History] Meloxicam [Mobic] 15 mg PO DAILY 11/04/16 [History] Potassium Chloride [K-Tab ER] 10 meq PO DAILY 11/04/16 [History] Sucralfate [Carafate] 1 gm PO QIDAC 11/04/16 [History] Tamsulosin [Flomax] 0.8 mg PO DAILY 11/04/16 [History] Tramadol HCl [Ultram] 50 - 100 mg PO QID PRN 11/04/16 [History] Umeclidinium [place] [Incruse Ellipta] 62.5 mcg IH DAILY 11/04/16 [History] Insulin DETEMIR [Levemir] 40 unit SQ HS #0 [id number] 11/08/16 [Rx] Insulin DETEMIR [Levemir] 48 unit SQ DAILY #0 [id number] 11/08/16 [Rx] Insulin LISPRO [HumaLOG] 15 units SQ TIDAC #0 vial 11/08/16 [Rx] Allergies/Adverse Reactions: Allergies No Known Allergies Allergy (Verified 11/04/16 12:18) Date of admission: 11/05/16 14:21 Primary care physician: Mica Hudson, Discharging clinician: Kerri Stern Anticipated date of discharge: 11/08/16 - Patient Status Disposition: Home, Self-Care Condition: Good Functional capacity at discharge: independent ambulation Overall status at discharge: patient is back to baseline - Discharge Instructions Follow Up With: Mica Hudson, JORDAN [Primary Care Provider] - 11/09/16 10:00 am Additional Instructions: Please follow up with your primary care physician on Wednesday (11/09/16). Please follow up with Mainframe Developer within one to two weeks after your discharge from the hospital. Please closely monitor your blood glucose at home (fasting, before meals, two hours after meals, and before bedtime). Please keep a log of these numbers and take this log with you to your Primary care physician's appointment. Your insulin therapy regimen will be adjusted as per these numbers. Please seek medical help if you have persistently elevated BG greater than 300. Please seek medical help if you have BG less than 100. Your insulin and supplies have been called to the [facility] pharmacy (Levemir 50units in am and Levemir 40units at bedtime, Novolog 15units before meals) Please resume all your other medications as prescribed by your primary care physician. - Diet and Activity Activity: resume usual activities as tolerated Diet: diabetic diet Hospital course: Mr. Stoddard is a 61 year old male ith PMH of hypertension, COPD, chronic back pain , morbid obesity who was admitted for management of hyperglycemia. Upon arrival to the ER, patient was noted to have BG of 709 with AIC of 14.1. Patient was started on insulin drip and switched to Levemir once his BG was better controlled. He was also noted to have CYNTHIA and hypotension due to which his home medication of lisinopril, lasix were place on hold and he was started on IV fluids. His CYNTHIA resolved and BP became elevated at which time his home antihypertensives were resumed. He also reported of having dysphagia with weight loss for which GI eval was requested. NO acute GI intervention was recommended and an outpatient follow up was suggested. Patient was seen by a personal development educator and was provided with the knowledge to administer insulin therapy. At this time patient is hemodynamically stable with BG better controlled, he will be discharged to home with insulin therapy. All his prescriptions have been called in to his pharmacy. Patient demonstrates understanding of his diagnosis and agrees with the discharge plan. - Time Spent with Patient Total time spent providing and/or coordinating discharge services: Greater than 30 minutes - Constitutional Vitals: Temp Pulse Resp BP Pulse Ox 97.8 F 90 16 166/73 98 11/08/16 10:54 11/08/16 10:54 11/08/16 10:54 11/08/16 10:54 11/08/16 10:54 General appearance: Present: A&O X 3, morbidly obese, pleasant, no acute distress, answers questions appropriately - Head Head exam: Present: atraumatic, normocephalic - Respiratory Respiratory exam: Present: CTAB. Absent: accessory muscle use, rales, rhonchi, wheezes - Cardiovascular Cardiovascular exam: Present: RRR, +S1, +S2. Absent: diastolic murmur, gallop, rubs, systolic murmur - GI/Abdominal GI/Abdominal exam: Present: normal bowel sounds, soft, no peritoneal signs. Absent: distended, tenderness Additional comments: ventral hernia - Extremities Exam Extremities exam: Present: warm, radial pulses palpable and symetrical. Absent : calf tenderness, cyanotic, pedal edema - Neurological Exam Neurological exam: Present: alert, oriented X3 - Psychiatric Psychiatric exam: Present: normal affect, normal mood
--- NOTE | 2016-11-08 14:50 | Discharge Summary ---
Date of Encounter: 11/08/16 Time of Encounter: 14:50 - Discharge Diagnosis (1) New onset type 2 diabetes mellitus Priority: Primary Status: Acute (2) Dysphagia Priority: Secondary Status: Acute Qualifiers: Dysphagia type: unspecified Qualified Code(s): R13.10 - Dysphagia, unspecified (3) Oylrv-rh-gbbfxnx kidney injury Priority: Secondary Status: Resolved (4) Hypertension Priority: Secondary Status: Chronic Qualifiers: Hypertension type: essential hypertension Qualified Code(s): I10 - Essential (primary) hypertension (5) COPD (chronic obstructive pulmonary disease) Priority: Secondary Status: Chronic Qualifiers: COPD type: unspecified COPD Qualified Code(s): J44.9 - Chronic obstructive pulmonary disease, unspecified (6) DVT prophylaxis Priority: Secondary Status: Acute (7) Back pain Priority: Secondary Status: Chronic Qualifiers: Back pain location: back pain in unspecified location Chronicity: chronic Back pain laterality: unspecified Qualified Code(s): M54.9 - Dorsalgia, unspecified; G89.29 - Other chronic pain - Discharge Medications Home Medications: Albuterol Neb [Proventil Neb] 2.5 mg IH Q4-6H PRN 11/04/16 [History] Baclofen [Lioresal] 10 mg PO TID PRN 11/04/16 [History] Fluticasone/Vilanterol [Breo Ellipta 200-25 Mcg INH] 1 each IH DAILY 11/04/16 [ History] Furosemide [Lasix] 40 mg PO BID 11/04/16 [History] Guanfacine HCl [Intuniv] 2 mg PO DAILY 11/04/16 [History] Lisinopril/Hydrochlorothiazide [Zestoretic 20-25 mg Tablet] 1 each PO DAILY 12/16 [History] Meloxicam [Mobic] 15 mg PO DAILY 11/04/16 [History] Potassium Chloride [K-Tab ER] 10 meq PO DAILY 11/04/16 [History] Sucralfate [Carafate] 1 gm PO QIDAC 11/04/16 [History] Tamsulosin [Flomax] 0.8 mg PO DAILY 11/04/16 [History] Tramadol HCl [Ultram] 50 - 100 mg PO QID PRN 11/04/16 [History] Umeclidinium [place] [Incruse Ellipta] 62.5 mcg IH DAILY 11/04/16 [History] Insulin DETEMIR [Levemir] 40 unit SQ HS #0 [id number] 11/08/16 [Rx] Insulin DETEMIR [Levemir] 48 unit SQ DAILY #0 [id number] 11/08/16 [Rx] Insulin LISPRO [HumaLOG] 15 units SQ TIDAC #0 vial 11/08/16 [Rx] Allergies/Adverse Reactions: Allergies No Known Allergies Allergy (Verified 11/04/16 12:18) Date of admission: 11/05/16 14:21 Primary care physician: Mica Hudson, - Patient Status Disposition: Home, Self-Care Condition: Good - Discharge Instructions Instructions: How to Check Your Blood Sugar (DC), How to Check Your Blood Sugar (GEN), Diabetes Mellitus Type 2 in Adults (DC) Follow Up With: Mica Hudson, TRANSPORTATION INSPECTOR [Primary Care Provider] - 11/09/16 10:00 am Additional Instructions: Please follow up with your primary care physician on Wednesday (11/09/16). Please follow up with Director Epidemiology within one to two weeks after your discharge from the hospital. Please closely monitor your blood glucose at home (fasting, before meals, two hours after meals, and before bedtime). Please keep a log of these numbers and take this log with you to your Primary care physician's appointment. Your insulin therapy regimen will be adjusted as per these numbers. Please seek medical help if you have persistently elevated BG greater than 300. Please seek medical help if you have BG less than 100. Your insulin and supplies have been called to the [facility] pharmacy (Levemir 50units in am and Levemir 40units at bedtime, Novolog 15units before meals) Please resume all your other medications as prescribed by your primary care physician. Hospital course: Mr. Stoddard is a 61 year old male - Time Spent with Patient Total time spent providing and/or coordinating discharge services: - Constitutional Vitals: Temp Pulse Resp BP Pulse Ox 97.8 F 90 16 166/73 98 11/08/16 10:54 11/08/16 10:54 11/08/16 10:54 11/08/16 10:54 11/08/16 10:54 General appearance: Present: A&O X 3, morbidly obese, pleasant, no acute distress, answers questions appropriately
[2016-11-10 10:30] VITALS: BP 166/73
== END 2016-11-08 15:10 | disposition home or self-care (01) | DRG 420 ==
LOC: 3BNU 12:10 → EMEROO 12:10 → 3BNU 16:13 → SUATTDRO 11-05 14:21
PROVIDERS: ADMIT Internal Medicine; ATTEND Internal Medicine

== ENCOUNTER 2017-09-13 07:59 | Inpatient (IN) ==
--- NOTE | 2017-09-12 21:53 | Discharge Summary ---
<Alisia Lackey E - Last Filed: 09/12/17 21:53> Date of Encounter: 09/12/17 - Discharge Diagnosis (1) Rotator cuff tear arthropathy of right shoulder Priority: Primary Status: Chronic (2) COPD (chronic obstructive pulmonary disease) Priority: Secondary Status: Chronic Qualifiers: COPD type: unspecified COPD Qualified Code(s): J44.9 - Chronic obstructive pulmonary disease, unspecified (3) HTN (hypertension) Priority: Secondary Status: Chronic Qualifiers: Hypertension type: unspecified Qualified Code(s): I10 - Essential (primary ) hypertension (4) Diabetes mellitus Priority: Secondary Status: Chronic Qualifiers: Diabetes mellitus type: type 2 Diabetes mellitus complication status: with unspecified complications Diabetes mellitus extermination inspector insulin use: without detention use Qualified Code(s): E11.8 - Type 2 diabetes mellitus with unspecified complications (5) MATTIE on CPAP Priority: Secondary Status: Chronic (6) Obesity Priority: Secondary Status: Chronic Qualifiers: Obesity type: unspecified obesity type Obesity classification: unspecified obesity classification Serious obesity comorbidity presence: unspecified whether serious comorbidity present Qualified Code(s): E66.9 - Obesity, unspecified (7) BPH (benign prostatic hyperplasia) Priority: Secondary Status: Chronic Qualifiers: Lower urinary tract symptom presence: unspecified whether lower urinary tract symptoms present Qualified Code(s): N40.0 - Benign prostatic hyperplasia without lower urinary tract symptoms (8) Chronic pain Priority: Secondary Status: Chronic Qualifiers: Chronic pain type: other chronic pain Qualified Code(s): G89.29 - Other chronic pain (9) Status post total replacement of right shoulder Priority: Primary Status: Acute - Discharge Medications Home Medications: OxyCODONE Immed Rel [Roxicodone 5 MG] 5 mg PO Q6HR PRN 7 Days #28 tablet [Rx] Albuterol Neb [Proventil Neb] 2.5 mg IH Q2H PRN 09/13/17 [History] Albuterol Sulfate [Albuterol Inhaler] 2 puff IH Q6HR PRN 09/13/17 [History] Baclofen [Lioresal] 10 mg PO TID 09/13/17 [History] Cholecalciferol (Vitamin D3) [Vitamin D3] 10,000 unit PO DAILY 09/13/17 [History ] Diclofenac Sodium [Voltaren] 75 mg PO BID 09/13/17 [History] Fluticasone/Vilanterol [Breo Ellipta 100-25 Mcg INH] 1 puff IH DAILY 09/13/17 [ History] Furosemide [Lasix] 40 mg PO BID 09/13/17 [History] Gabapentin [Neurontin] 600 mg PO TID 09/13/17 [History] Glimepiride [Amaryl] 4 mg PO DAILY 09/13/17 [History] Guanfacine HCl 2 mg PO DAILY 09/13/17 [History] Lisinopril/Hydrochlorothiazide [Zestoretic 20-25 mg Tablet] 1 tab PO DAILY 09/13 [History] Potassium Chloride [K-Tab ER] 10 meq PO DAILY 09/13/17 [History] Tamsulosin [Flomax] 0.4 mg PO DAILY 09/13/17 [History] Tramadol HCl [Ultram] 50 mg PO QID PRN 09/13/17 [History] Umeclidinium [place] [Incruse Ellipta] 62.5 mcg IH DAILY 09/13/17 [History] metFORMIN [Glucophage] 850 mg PO TIDWM 09/13/17 [History] Allergies/Adverse Reactions: 3 Allergy/AdvReac Type Severity Reaction Status Date / Time No Known Allergies Allergy Verified 09/13/17 08:56 Primary care physician: Mica Hudson, - Patient Status Disposition: Home, Self-Care Condition: Good - Discharge Instructions Follow Up With: Alisia Lackey PAC [Physician Embedded Software Architect] - 09/23/17 9:00 am Mica Hudson, COLLECTION SYSTEM[employer]DEL[employer] [Primary Care Provider] - Additional Instructions: Discharge Instructions: Total Shoulder Please call [facility] ([phone]), your Primary Care Physician, or report to the Emergency Room if you have any of the following symptoms: Nausea, vomiting, fever greater that 101.5, swelling, chest pain, shortness of breath, increased pain/redness/drainage/odor for your incision site, numbness/ tingling, or any other concerning symptoms. ACTIVITY: Always keep your arm in the sling. Do not raise your arm away from your body. Do not use your arm to help with getting in or out of bed. No weight bearing permitted. Only perform those exercises given to you by your therapist. MEDICATIONS: Upon discharge resume your home medications. Take all the medications as prescribed. Take a stool softener if taking narcotic pain medications. Stool softeners are only effective if you drink enough fluids. Drink 6-8 glass of water or fluids a day, unless this is not allowed for another health problem. Despite using stool softeners, if you haven't had a bowel movement in 3 days, please switch to a gentle laxative. Gentle laxatives are sold over the counter. You should have a bowel movement within 24 hours, if not call the office. You will be discharged from the hospital with a prescription for pain medication. You are encouraged to decrease the use of narcotic pain medication as tolerated. Should you require a refill, please call the office. [facility] prescribes narcotic pain medication for only 4-6 weeks after surgery. If you require pain medication beyond this time period, you may be referred to your Primary Care Physician or to the Pain Clinic for further evaluation. Plan ahead for refills on pain medication as many narcotics either need to be picked up at the office or mailed. It is best to call 48-72 hours in advance of needing a prescription refill so you don't run out of medication. To help control the post-operative pain, you may take NSAIDs (Aleve,Advil, Motrin, Ibuprofen, Naprosyn) or Tylenol as prescribed on the bottle in addition to the pain medication. WOUND CARE: Leave the dressing on for 7-10 days. You may change the dressing if it becomes saturated greater than 50%. Do not get the dressing wet at anytime. Wash your hands with antibacterial soap, rinse and dry prior to any wound care. If you have sejal the visiting nurse or rehab facility can remove the stapes 10-14 days after surgery and place steri-strips across the wound. Leave the steri-strips in place until they fall off on their own. You may let water from the shower run on top of the steri-strips. If you do not have a visiting nurse or rehab facility, you will need to return to the office at 10-14 days for the sejal to be removed. If you have itching or redness around the dressing call the office. FOLLOW-UP: Please follow up with your surgeon in the orthopedic clinic, as scheduled - Hospital Course Hospital course: Mr. Stoddard is a 62 year old male - Time Spent with Patient Total time spent providing and/or coordinating discharge services: <Jaspal Campos - Last Filed: 09/13/17 17:42> Date of Encounter: 09/13/17 Time of Encounter: 17:42 - Discharge Diagnosis (1) Morbid obesity with BMI of 60.0-69.9, adult Priority: Secondary Status: Chronic (2) New onset type 2 diabetes mellitus Priority: Secondary Status: Chronic (3) Hypertension Priority: Secondary Status: Chronic Qualifiers: Hypertension type: essential hypertension Qualified Code(s): I10 - Essential (primary) hypertension (4) COPD (chronic obstructive pulmonary disease) Priority: Secondary Status: Chronic Qualifiers: COPD type: unspecified COPD Qualified Code(s): J44.9 - Chronic obstructive pulmonary disease, unspecified (5) DVT (deep venous thrombosis) Priority: Secondary Status: Acute Qualifiers: DVT location: lower extremity Affected thrombotic vein of extremity: unspecified vein of extremity Chronicity: unspecified Laterality: unspecified laterality Qualified Code(s): I82.409 - Acute embolism and thrombosis of unspecified deep veins of unspecified lower extremity (6) Rotator cuff tear arthropathy of right shoulder Priority: Primary Status: Chronic (7) COPD (chronic obstructive pulmonary disease) Priority: Secondary Status: Chronic Qualifiers: COPD type: unspecified COPD Qualified Code(s): J44.9 - Chronic obstructive pulmonary disease, unspecified (8) HTN (hypertension) Priority: Secondary Status: Chronic Qualifiers: Hypertension type: unspecified Qualified Code(s): I10 - Essential (primary ) hypertension (9) Diabetes mellitus Priority: Secondary Status: Chronic Qualifiers: Diabetes mellitus type: type 2 Diabetes mellitus complication status: with unspecified complications Diabetes mellitus detention insulin use: without extermination inspector use Qualified Code(s): E11.8 - Type 2 diabetes mellitus with unspecified complications (10) MATTIE on CPAP Priority: Secondary Status: Chronic (11) BPH (benign prostatic hyperplasia) Priority: Secondary Status: Chronic Qualifiers: Lower urinary tract symptom presence: unspecified whether lower urinary tract symptoms present Qualified Code(s): N40.0 - Benign prostatic hyperplasia without lower urinary tract symptoms (12) Chronic pain Priority: Secondary Status: Chronic Qualifiers: Chronic pain type: other chronic pain Qualified Code(s): G89.29 - Other chronic pain (13) Status post total replacement of right shoulder Priority: Primary Status: Acute Primary care physician: Mica Hudson, - Patient Status Functional capacity at discharge: independent ambulation Overall status at discharge: patient is progressing back to baseline - Hospital Course Hospital course: Mr. Stoddard is a 62 year old male Status post right total shoulder replacement discharged home same day - Time Spent with Patient Total time spent providing and/or coordinating discharge services:
[2017-09-13] MEDS ORDERED: Albuterol 2.5 MG/3 ML NEBULIZER IH ONE (08:19)
[2017-09-13] MEDS ORDERED: CeFAZolin Syr 3,000MG/30 ML 3,000 MG/30 ML SYRINGE IVPB ONE (08:19)
[2017-09-13] MEDS ORDERED: Ringers Solution, Lactated 1,000 ML IVC SCH ×2 (08:30→12:16)
[2017-09-13] MEDS ORDERED: Acetaminophen IV 1,000 MG/100 ML INFUS..BTL IVPB ONE (08:34)
--- NOTE | 2017-09-13 08:43 | Anesthesia Evaluation PreOp ---
Date of Encounter: 09/13/17 Time of Encounter: 08:40 - Past History Planned Operation: R total shoulder replacement Cardiac History: HTN Pulmonary History: COPD, MATTIE Dx (on cpap) HOTEL ROOM ATTENDANT History: Denies Any Significant HX Other Medical History: Diabetes Type II, Other (BMI 62) Anesthesia History: No Prior Anesthetic Complications, Past Anesthesia ( cataracts, T and A, skull fracture) Alcohol Use: none Drug use: none Medications and Allergies Albuterol Neb [Proventil Neb] 2.5 mg IH Q4-6H PRN 11/04/16 [History] Baclofen [Lioresal] 10 mg PO TID PRN 11/04/16 [History] Fluticasone/Vilanterol [Breo Ellipta 200-25 Mcg INH] 1 each IH DAILY 11/04/16 [ History] Furosemide [Lasix] 40 mg PO BID 11/04/16 [History] Guanfacine HCl [Intuniv] 2 mg PO DAILY 11/04/16 [History] Lisinopril/Hydrochlorothiazide [Zestoretic 20-25 mg Tablet] 1 each PO DAILY 12/16 [History] Meloxicam [Mobic] 15 mg PO DAILY 11/04/16 [History] Potassium Chloride [K-Tab ER] 10 meq PO DAILY 11/04/16 [History] Sucralfate [Carafate] 1 gm PO QIDAC 11/04/16 [History] Tamsulosin [Flomax] 0.8 mg PO DAILY 11/04/16 [History] Tramadol HCl [Ultram] 50 - 100 mg PO QID PRN 11/04/16 [History] Umeclidinium [place] [Incruse Ellipta] 62.5 mcg IH DAILY 11/04/16 [History] Insulin DETEMIR [Levemir] 40 unit SQ HS #0 [id number] 11/08/16 [Rx] Insulin DETEMIR [Levemir] 48 unit SQ DAILY #0 [id number] 11/08/16 [Rx] Insulin LISPRO [HumaLOG] 15 units SQ TIDAC #0 vial 11/08/16 [Rx] OxyCODONE Immed Rel [Roxicodone 5 MG] 5 mg PO Q6HR PRN 7 Days #28 tablet [Rx] 3 Allergy/AdvReac Type Severity Reaction Status Date / Time No Known Allergies Allergy Verified 08/30/17 11:50 - Meds/Allergy Pre-op Review Medications Reviewed: Yes Allergies Reviewed: Yes Beta Blockers on Current Med List: No Anesthesia Results - Labs Laboratory Tests 08/30/17 08/30/17 08/30/17 12:29 12:29 12:29 WBC 8.9 RBC 4.75 Hgb 12.9 Hct 40.8 Plt Count 192 PT 11.4 INR 1.1 APTT 31.1 Sodium 138 Potassium 4.6 Chloride 103 Carbon Dioxide 25 BUN 26 H Creatinine 1.19 - Imaging EKG: report reviewed (SINUS BRADYCARDIA WITH FIRST DEGREE AV BLOCK POSSIBLE ANTERIOR MYOCARDIAL INFARCTION, PROBABLY OLD Electronically Signed On 04-12-2017 6:29:20 EDT by Alexis Osborn DO) Additional studies: ECHO Impressions: Technically challenging study with suboptimal windows. LVEF 65%. Definity echo contrast was used. Not all LV wall segments were well visualized. Indeterminate diastolic function. RV is not well visualized. Valves are not well visualized. Doppler of the aortic valve is suboptimal. Lack of TR gradient to estimate RVSP. Left Ventricular Wall Motion: Rest Echo Findings The mid anterior septal, mid inferior lateral, basal anterior septal and basal inferior lateral kapoor were not visualized. All other wall segments showed normal motion. Anesthesia Exam O2 Sat Height 1.8 m Height 1.8 m Height 1.8 m Weight 204.57 kg Weight 204.57 kg Weight 204.57 kg O2 Sat by Pulse Oximetry 93 O2 Sat by Pulse Oximetry 93 Vital Signs Temp Pulse Resp BP Pulse Ox 97.9 F 68 18 115/59 93 09/13/17 08:23 09/13/17 08:23 09/13/17 08:23 09/13/17 08:23 09/13/17 08:23 Blood glucose: 157 Height: 1.8m Weight: 204kg NPO (# of Hours): >8 Pain Scale: 0 Pain Scale Used: Numeric (1 - 10) - HEENT Pupil (Motor): Pupils equal, EOMI Mallampati: III Teeth: Poor dentition Oral Opening: Greater than 3 - HOTEL ROOM ATTENDANT LOC: Oriented HOTEL ROOM ATTENDANT Motor: Normal RUE, Normal LUE, Normal RLE, Normal LLE, Normal Face HOTEL ROOM ATTENDANT Sensory: Normal: RUE, LUE, RLE, LLE, Face - Cardiac Rhythm: Regular - Pulmonary Breath Sounds: bilateral Clear Respiratory Effort: Symmetrical Anesthesia Assess/Plan ASA Score: 3 (HTN, COPD, MATTIE on CPAP,) Modified [place] Scale for Level of Consciousness: Cooperative, oriented, and tranquil Anesthetic Plan: General (r/b/a discussed, questions answered, consent obtained , may need glidescope), Regional (R supraclav nn block) Monitoring Plan: Standard Monitors Recovery Plan: PACU
--- NOTE | 2017-09-13 08:44 | History & Physical Report ---
Date of Encounter: 09/13/17 Time of Encounter: 08:44 24 Hour HP Update - Instructions Instructions: If the History and Physical is less than 30 days old and was completed prior to A.M. admission and or procedure and has NOT been updated on calendar day of procedure please complete this update prior to performing procedure. - Update Patient reports changes in Medical Condition: No Changes in examination, assessment, or condition: No Changes in Medication: No Preop tests/diagnostics Reviewed: Yes Surgery Remains Indicated: Yes Consent for Planned Operative Procedure(s) Verified: Yes - Pre-Operative Checklist Preoperative Checklist Indicated: No Prophylactic Antibiotic Ordered: Yes Is VTE Prophylaxis Indicated?: Yes
[2017-09-13] MEDS ORDERED: *HR* Succinylcholine 200 MG/10 ML VIAL IVP ONE (08:59)
[2017-09-13] MEDS ORDERED: *HR* Propofol 200 MG/20 ML VIAL IVP ONE (08:59)
[2017-09-13] MEDS ORDERED: Lidocaine -MPF 2% 2 ML VIAL ONE ×2 (08:59→11:17)
[2017-09-13] MEDS ORDERED: *HR* Midazolam HCl 2 MG/2 ML VIAL ONE (08:59)
[2017-09-13] MEDS ORDERED: *HR* FentaNYL (PF) 100 MCG/2 ML VIAL ONE (08:59)
[2017-09-13] MEDS ORDERED: Ondansetron 4 MG/2 ML VIAL ONE (08:59)
[2017-09-13] MEDS ORDERED: Lidocaine -MPF 4% 5 ML AMPUL ONE (09:06)
[2017-09-13] MEDS ORDERED: *HR* Ropivacaine/PF 0.5% 20 ML VIAL ONE (09:49)
--- NOTE | 2017-09-13 10:12 | Anesthesia Procedures ---
Date of Encounter: 09/13/17 Time of Encounter: 10:00 Procedures: Anesthesia - Nerve Block Procedure Date: 09/13/17 Time: 10:00 Surgical Procedure: right shoulder replacement Checklist: Correct Patient Identifier, Correct procedure, History checked Correct side: Right Blood Thinner: No Monitor Applied: EKG, BP, Pulse Oximetry Supplemental Oxygen via Nasal Cannula (L/min): 2 Sedation: Versed (mg): 2 Sedation: Fentanyl (mcg): 100 Indication: Post Op Analgesia Pre-op Neuro Deficits: No Block Type: Supraclavicular, Other (ICP) Catheter placed: No Sterile Technique: Yes Ultrasound used: Yes Anatomy identified: Yes Visual spread of Local: Yes Neuro Stimulation: Yes Nerve Stimulator Range: 0.2 - 0.4 mA Blood on Needle Aspiration: No Smooth Injection of Local: Yes Pain with Injection of Local: No Prep: Chlorhexadine Needle: 22 x 50 mm Stimuplex Local: Ropivacaine (0.5% with 8 of decadron) Volume (cc): 30 Number of Attempts: 1 Complications: None/effective block Vitals: vss Comments: performed by EDWARD Echeverria
[2017-09-13] MEDS ORDERED: EPHEDrine 50 MG/ML VIAL ONE (10:35)
[2017-09-13] MEDS ORDERED: *HR* Labetalol 20 MG/4 ML SYRINGE IVP PRN (11:04)
[2017-09-13] MEDS ORDERED: *HR* Promethazine 25 MG/ML VIAL IVP PRN (11:04)
[2017-09-13] MEDS ORDERED: *HR* OxyCODONE Immed Rel 5 MG TABLET PO PRN ×3 (11:04→12:16)
--- NOTE | 2017-09-13 11:20 | Orthopedic Operative Note ---
Date of procedure: 09/13/17 Pre-op diagnosis: right shoulder cuff tear arthropathy Post-op diagnosis: same Procedure: Procedure: Total Shoulder Replacment Reverse, right Estimated blood loss: 100 cc Hardware: Metal and polyethylene replacement: Arthrex large glenoid baseplate, 2 4.5 screws. 1 6.5 screw, 42+4 glenosphere, 9 humeral stem, poly insert 3, 12 metal Exam Under anesthesia: Full motion and no instability Procedural Notes: Irreparable tear supraspinatus tendon. Grade 4 arthritic changes Operative procedure: The patient was brought to the operating room and placed on the operating room table. After general anesthesia was administered the operative shoulder was examined. Findings were noted. The patient was placed in the modified beachchair position. All pressure points were padded appropriately. And the head was stabilized in the neutral position. The operative extremity was prepped and draped in the sterile surgical fashion. The patient received IV antibiotics prior to skin incision. A standard deltopectoral approach was made to the operative shoulder. Incision was made to the skin and subcutaneous tissue,hemo stasis was obtained with Bovie cautery. Using careful blunt dissection the cephalic vein was identified and mobilized medially. The deltopectoral interval was developed and the clavipectoral fascia was incised. The subscap was released off the lesser tuberosity and tagged with #2 FiberWire suture subscap was irreparable. The humerus was dislocated patient noted to have irreparable tear supraspinatus tendon, and the humeral cut was made along the anatomic neck. She noted to have grade 4 arthritic [id number] head. Anterior and posterior Bankart retractors were placed to expose the glenoid. Patient noted to have grade 4 arthritic changes glenoid socket. The glenoid guide was seated and the centering hole was made. It was reamed with the appropriate reamer. The large baseplate was seated and secured with (2) 4.5 screws and one 6.5 screw. The baseplate was irrigated and dried and the 42+4 Glenosphere was seated and secured with the Mina taper. The Mina taper was tested and found to be secure the humerus was redislocated and prepared with the diaphyseal reamers, followed by a broaching process up to the appropriate size 9 in the patient's anatomic version. The metaphyseal reamer was then utilized. Trial reduction found the shoulder to be relocatable. Trial components were removed and The appropriate 9 stem was impacted in place in the patient's anatomic version. Trial reduction found the shoulder to be relocatable and stable with the appropriate 12 metal 3 polyp. Trial component was removed and the real implants was seated and secured the shoulder was reduced. The shoulder had excellent motion and excellent stability and no evidence of dislocation. The deep tissue was irrigated with pulse irrigation. The PA close the shoulder. The deltopectoral interval was closed with a running #1 PDS suture, subcutaneous tissue was irrigated and closed with 0 PDS suture, the skin was closed with Dermabond. The patient was placed in a sterile dressing, abduction brace and extubated. The patient was then transferred to the recovery room in stable condition. Anesthesia: EDWAR Surgeon: Jaspal Campos Was there an assistant art director present: No Estimated blood loss (cc): 100 Condition: stable Disposition: PACU
[2017-09-13] MEDS ORDERED: Ketorolac 30 MG/ML VIAL ONE (11:43)
[2017-09-13] MEDS: MORPHINE SUL Oral CONC 10 MG/0.5 ML ORAL.SYG SL PRN ×2 (11:51→12:01)
--- NOTE | 2017-09-13 12:11 | Anesthesia Evaluation Post Op ---
Date of Encounter: 09/13/17 Time of Encounter: 12:07 - Vital Signs Vital Signs: vss - Lungs Lungs: Rhonchi (scattered, enc IS) - Airway Airway: Non-obstructed - Cardiovascular Baseline Rhythm - Mental Status Mental Status: Alert & Oriented, Answers Appropriately - Pain Pain Scale used: Cherelle (Faces) - Nausea Vomiting Nausea Vomiting: Not Present - Hydration Hydration: Ice chips - Discharge PostOp Status: Transfer Patient to floor (use CPAP during sleeping, cont. pulse ox.)
[2017-09-13 12:14] LABS: Hematocrit 35.5 % (37.5-50.1); Hemoglobin 11.6 g/dL (12.9-16.9)
[2017-09-13] MEDS ORDERED: Dextrose Gel 15 GM/37.5 ML TUBE PO PRN ×2 (12:16)
[2017-09-13] MEDS ORDERED: Naloxone 0.4 MG/ML INJ IVP PRN (12:16)
[2017-09-13] MEDS ORDERED: Insulin LISPRO 300 UNITS/3 ML VIAL SQ SCH ×2 (12:16→21:00)
[2017-09-13] MEDS ORDERED: *HR* Metformin 850 MG TABLET PO SCH (12:16)
[2017-09-13] MEDS ORDERED: D5% in Water 1,000 ML IVC PRN (12:16)
[2017-09-13] MEDS ORDERED: *HR* Dextrose 50 % in Water (Syg) 50 ML SYRINGE IVP PRN (12:16)
[2017-09-13] MEDS ORDERED: MOM Conc 10 ML UD.LIQ PO PRN (12:16)
[2017-09-13] MEDS ORDERED: Albuterol 2.5 MG/3 ML NEBULIZER IH PRN (12:16)
[2017-09-13] MEDS ORDERED: Temazepam 15 MG CAPSULE PO PRN (12:16)
[2017-09-13] MEDS ORDERED: Sennosides 8.6 MG TABLET PO PRN (12:16)
[2017-09-13] MEDS ORDERED: Ondansetron 4 MG/2 ML VIAL IVP PRN (12:16)
[2017-09-13] MEDS ORDERED: *HR* Enoxaparin 30 MG/0.3 ML SYRINGE SQ ONE (15:00)
[2017-09-13] MEDS ORDERED: Gabapentin 300 MG CAPSULE PO SCH (15:00)
[2017-09-13] MEDS ORDERED: Baclofen 10 MG TABLET PO SCH (15:00)
[2017-09-13 15:12] VITALS: BP 135/68
[2017-09-13] MEDS ORDERED: CeFAZolin Syr 3,000MG/30 ML 3,000 MG/30 ML SYRINGE IVPB SCH (16:00)
[2017-09-13] MEDS ORDERED: *HR* Enoxaparin 30 MG/0.3 ML SYRINGE SQ SCH ×2 (18:00)
[2017-09-13] MEDS ORDERED: Furosemide 40 MG TABLET PO SCH (21:00)
[2017-09-14] MEDS ORDERED: Cholecalciferol (D-3) 1,000 UNIT TABLET PO SCH (09:00)
[2017-09-14] MEDS ORDERED: (Umeclidinium Bromide [Incruse Ellipta] 62.5 MCG) IH SCH (09:00)
[2017-09-14] MEDS ORDERED: (Fluticasone/Vilanterol [Breo Ellipta 100-25 Mcg Inh] IH SCH (09:00)
[2017-09-14] MEDS ORDERED: *HR* Glimepiride 4 MG TABLET PO SCH (09:00)
== END 2017-09-13 16:35 | disposition home or self-care (01) | DRG 315 ==
LOC: SAMDAY 07:59 → 3NENU 12:16
PROVIDERS: ADMIT Orthopaedic Surgery; ATTEND Orthopaedic Surgery